=== PATIENT | female | born 1990 | race American Indian/Alaskan Native ===

== ENCOUNTER 2021-07-07 07:37 | Emergency (ER) | payer BC ==
[2021-07-07] MEDS ORDERED: LIDOCAINE (1%) 10 MG/1 ML VIAL 20 ML MDV INFILTRATI ONE (08:04)
[2021-07-07 09:53] VITALS: BP 137/71
--- NOTE | 2021-07-07 11:57 | Emergency Department Report ---
ED Lower Extremity HPI - General Chief Complaint: Urogenital-Female Stated Complaint: VAGINAL ISSUES CYSTIC Source: patient Mode of arrival: Ambulatory Limitations: No Limitations - History of Present Illness Initial Comments: This is a 30-year-old female that presents to the emergency room with painful cyst to left labia for 2 months. Patient reports worsening pain over the past week. She reports a history of Bartholin cyst once which was drained in an ER. She is currently taking NSAIDs with minimal change in symptoms. She denies fever or drainage. Onset/Timin -: week(s) Place: home Severity: moderate Severity scale (0 -10): 6 Worsens With: other - Related Data Allergies Allergy/AdvReac Type Severity Reaction Status Date / Time iodine Allergy Vomiting Verified 07/07/21 07:43 ED Review of Systems ROS: Stated complaint: VAGINAL ISSUES CYSTIC Other details as noted in HPI ED Past Medical Hx - Past Medical History Previous Medical History?: No - Surgical History Past Surgical History?: No ED Physical Exam - General Limitations: No Limitations ED Course Vital Signs 07/07/21 07/07/21 07:45 09:51 Temperature 98.0 F 98.4 F Pulse Rate 81 70 Respiratory 18 16 Rate Blood Pressure 137/71 Blood Pressure 123/80 [Right] O2 Sat by Pulse 99 98 Oximetry Critical care attestation.: If time is entered above; I have spent that time in minutes in the direct care of this critically ill patient, excluding procedure time. ED Disposition Disposition: HOME / SELF CARE / HOMELESS Condition: Stable Referrals: PRIMARY CARE, [Primary Care Provider] - 3-5 Days
--- NOTE | 2021-07-07 12:04 | Emergency Department Report ---
ED Female HPI - General Chief complaint: Urogenital-Female Stated complaint: VAGINAL ISSUES CYSTIC Source: patient Mode of arrival: Ambulatory Limitations: No Limitations - History of Present Illness Initial comments: This is a 30-year-old female that presents to the emergency room with painful cyst to left labia for 2 months. Patient reports worsening pain over the past week. She reports a history of Bartholin cyst once which was drained in an ER. She is currently taking NSAIDs with minimal change in symptoms. She denies fever or drainage. Complaint: other (left labia cyst) Onset/Timin -: week(s) Location: labia Severity: moderate Severity scale (0 -10): 6 Quality: aching Consistency: constant Improves with: none Worsens with: movement, other (sitting) Are you Now?: No Last Menstrual Period: 06/25/21 EDC: 04/01/22 Associated Symptoms: denies other symptoms - Related Data Previous Rx's Medication Instructions Recorded Last Taken Type Ibuprofen [Motrin 800 MG tab] 800 mg PO Q8HR PRN #20 tablet 07/07/21 Unknown Rx Sulfamethoxazole/Trimethoprim 1 each PO BID #20 tablet 07/07/21 Unknown Rx [Bactrim DS TAB] Allergies Allergy/AdvReac Type Severity Reaction Status Date / Time iodine Allergy Vomiting Verified 07/07/21 07:43 ED Review of Systems ROS: Stated complaint: VAGINAL ISSUES CYSTIC Other details as noted in HPI Constitutional: denies: chills, fever Genitourinary: other (painful cyst to left labia). denies: urgency, dysuria, discharge Skin: denies: rash, lesions Neurological: denies: headache, weakness, paresthesias Psychiatric: denies: anxiety, depression ED Past Medical Hx - Past Medical History Previous Medical History?: No - Surgical History Past Surgical History?: No - Medications Home Medications: Home Medications Medication Instructions Recorded Confirmed Last Taken Type Ibuprofen [Motrin 800 MG tab] 800 mg PO Q8HR PRN #20 tablet 07/07/21 Unknown Rx Sulfamethoxazole/Trimethoprim 1 each PO BID #20 tablet 07/07/21 Unknown Rx [Bactrim DS TAB] ED Physical Exam - General Limitations: No Limitations General appearance: alert, in no apparent distress, obese - GI/Abdominal GI/Abdominal exam: Present: soft, normal bowel sounds. Absent: distended, tenderness, guarding, rebound, rigid, mass - External exam: Present: lesions (1.5 cm fluctuant nodule to left internal labia, TTP, mobile, no erythema, no drainage). Absent: erythema, lacerations, bleeding - Neurological Exam Neurological exam: Present: alert, oriented X3, normal gait - Psychiatric Psychiatric exam: Present: normal affect, normal mood - Skin Skin exam: Present: warm, dry, intact, normal color. Absent: rash ED Course Vital Signs 07/07/21 07/07/21 07:45 09:51 Temperature 98.0 F 98.4 F Pulse Rate 81 70 Respiratory 18 16 Rate Blood Pressure 137/71 Blood Pressure 123/80 [Right] O2 Sat by Pulse 99 98 Oximetry ED Medical Decision Making - Medical Decision Making This is a 30 y.o. female that presents with a painful abscess to left labia for 1 week. Prior history of Bartholin cyst. Patient is stable and examined by me. Physical assessment of 1.5 cm fluctuance nodule to left labia. No acute signs of distress noted. I&D refer to note. Discussed plan to start bactrim DS and ibuprofen with patient. Educated patient on follow up plan to have packing removed and wound reassessed in 2-3 days. Patient agrees to ED plan of care. Discharged home and follow up with PCP in 2-3 days. Critical care attestation.: If time is entered above; I have spent that time in minutes in the direct care of this critically ill patient, excluding procedure time. ED Disposition Clinical Impression: Bartholin's cyst Disposition: 01 HOME / SELF CARE / HOMELESS Is pt being admited?: No Condition: Stable Instructions: Bartholin's Cyst Additional Instructions: Keep packing in place for 2-3 days. Return to ER or f/u with PCP to have packing removed and wound reassessed. Complete full round of bactrim DS antibiotic as prescribed. Follow up with PCP or ER in 2-3 days. Return to ER if foul smelling discharge, swelling, or severe pain to wound. Prescriptions: Sulfamethoxazole/Trimethoprim [Bactrim DS TAB] 1 each PO BID #20 tablet Ibuprofen [Motrin 800 MG tab] 800 mg PO Q8HR PRN #20 tablet PRN Reason: Pain , Severe (7-10) Referrals: [facility] [Provider Group] - 3-5 Days [facility] [Outside] - 3-5 Days Forms: Work/School Release Form(ED)
== END 2021-07-07 10:48 | disposition home or self-care (01) ==
LOC: ED 07:37
DX: N75.0 Cyst of Bartholin's gland (principal); Z91.041 Radiographic dye allergy status
CPT/HCPCS: 99281; 99283